=== PATIENT | male | born 1980 | race Two or more races ===

== ENCOUNTER 2018-04-15 16:03 | Emergency (ER) | payer SELFPAY ==
[~2018-04-15] VITALS: Ht 165.1 cm; Wt 86.2 kg
[~2018-04-15 16:03] MED LIST: CYCLOBENZAPRINE10 MG ORAL; IBUPROFEN600 MG ORAL; IBUPROFEN600 MG PO; INDOCIN25 MG ORAL; NORCO 5-325 TA1 EACH ORAL; VALIUM5 MG PO; VICODIN1 TAB PO
[2018-04-15] MEDS ORDERED: Benzonatate 100mg Perles ORAL ONE (16:30)
--- NOTE | 2018-04-15 16:33 | Emergency Room Report ---
History of Present Illness General Chief Complaint: Flu Like Symptoms Source: Patient Present Illness HPI 37 year-old male patient presents ER complaining of cough for the past 3 days. Reports cough with clear sputum, denies hemoptysis. Denies coffee-ground emesis contrary to triage report.. Reports sore throat during this time. Denies vomiting. Reports runny nose during this time. Reports feeling congested. reports night sweats, denies fever. Denies cough worse at night. Reports was at work and they sent him home until about come back until "the cough goes away". Requesting work no. Denies history of heart attack or stroke. Denies history of asthma. Denies history of heart disease. Denies fever, chest pain, shortness of breath, abdominal pain. Denies vomiting. Allergies: Coded Allergies: No Known Allergies (Unverified , 04/15/18) Patient History Past Medical History: see triage record Reviewed Nursing Documentation: PMH: Agreed; PSxH: Agreed Nursing Documentation-PMH Past Medical History: No Stated History Hx Cardiac Problems: No - Hyperthyroidism Hx Neurological Problems: No - left ankle surgery d/t fx in 2009 Review of Systems All Other Systems: negative except mentioned in HPI Physical Exam Vital Signs Date Time Temp Pulse Resp B/P (MAP) Pulse Ox O2 Delivery O2 Flow Rate FiO2 04/15/18 16:07 98.4 16 131/86 97 Room Air Sp02 EP Interpretation: reviewed, normal General Appearance: well appearing, no apparent distress, alert, GCS 15, non- toxic Head: normocephalic, atraumatic Eyes: bilateral eye normal inspection, bilateral eye PERRL ENT: hearing grossly normal, normal pharynx, no angioedema, normal voice, TMs + canals normal, uvula midline, moist mucus membranes, nasal congestion Neck: full range of motion Respiratory: lungs clear, normal breath sounds, no rhonchi, no respiratory distress, no accessory muscle use, no wheezing, speaking full sentences Cardiovascular #1: regular rate, rhythm, no edema Musculoskeletal: back normal, digits/nails normal, gait/station normal, normal range of motion, non-tender Neurologic: alert, oriented x3, responsive, motor strength/tone normal, sensory intact Psychiatric: mood/affect normal Skin: no rash Medical Decision Making PA Attestation Dr. López is my supervising Physician whom patient management has been discussed with. Diagnostic Impression: Primary Impression: Upper respiratory infection ER Course Pt presents to ED c/o cough x 3 days. DDX considered but are not limited to influenza, viral URI, pneumonia, strep throat, rhinitis, sinusitis, otitis media, otitis externa, TB. VITAL SIGNS are WNL, patient is afebrile. ER COURSE: Provided with cough medication in the ER. Lungs clear to auscultation, no wheezes, rhonci or rales. patient afebrile. CXR negative, low suspicion for pneumonia, does not require abx. no tonsillar exudates, no pharyngeal erythema, history of cough, no fever, no stridor, uvula midline, low suspicion for peritonsillar abscess. Likely viral etiology of symptoms. Symptomatic treatment. drink plenty of fluids. Salt water gargles for sore throat. Followup with PCP for further treatment and/or referral as needed. Er precautions given. DISCHARGE: -Rx given for Claritin -Rx given for Tylenol/Acetaminophen -Rx given for Tessalon Perles for cough sx. -Rx given for Sudafed At this time pt is stable for d/c to home. Patient is resting comfortably, in no acute distress, nontoxic appearing. Patient to take medications as instructed Will provide with patient care instructions and any necessary prescriptions. Care plan and follow-up instructions provided. Patient instructed to follow-up with primary care provider in 3 - 5 days. Patient questions asked and answered. Patient reports understanding and agreement to treatment plan. ER precautions given. Patient instructed to return to ER immediately for any new or worsening of symptoms including but not limited to increasing SOB, persistent fever, intractable vomiting. - Please note that this Emergency Department Report was dictated using [employer] mercerizer operator technology software, occasionally this can lead to erroneous entry secondary to interpretation by the dictation equipment. Chest X-Ray Diagnostic Results Chest X-Ray Diagnostic Results : Chest X-Ray Ordered: Yes # of Views/Limited/Complete: 1 View Indication: Chest Pain EP Interpretation: Yes NAKIA Xray: Interpretation reviewed, and agrees with findings. Interpretation: no consolidation, no effusion, no pneumothorax, no acute cardiopulmonary disease Impression: No acute disease NAKIA Krishna PA-C Last Vital Signs Date Time Temp Pulse Resp B/P (MAP) Pulse Ox O2 Delivery O2 Flow Rate FiO2 04/15/18 16:07 98.4 16 131/86 97 Room Air Disposition: HOME, SELF-CARE Condition: Stable Scripts Loratadine (CLARITIN) 10 Mg Capsule 10 MG ORAL DAILY, #30 CAP Prov: Rolf Krishna 04/15/18 D-Methorphan/PE/Acetaminophen (Sudafed PE Pressure+Pain+Cough) 1 Each Tablet 1 EACH PO BID, #24 TAB Prov: Rolf Krishna 04/15/18 Benzonatate* (TESSALON PERLE*) 100 Mg Capsule 100 MG ORAL THREE TIMES A DAY, #20 PERLE Prov: Rolf Krishna 04/15/18 Acetaminophen* (TYLENOL EXTRA STRENGTH*) 500 Mg Tablet 500 MG ORAL Q8H PRN for Prn Headache/Temp > 101, #30 TAB 0 Refills Prov: Rolf Krishna 04/15/18 Patient Instructions: Upper Respiratory Infection, Adult, [id number] Additional Instructions: Followup with primary care provider in 3 -5 days. Take medications as directed. Patient questions asked and answered. ER precautions given, patient instructed to return to ER immediately for any new or worsening of symptoms. Rolf Krishna Apr 15, 2018 16:33
[2018-04-15 16:47] VITALS: BP 131/86
[2018-04-15] MEDS ORDERED: CLARITIN10 M2 ORAL (16:59)
[2018-04-15] MEDS ORDERED: SUDAFED PE PRE1 EACH PO (16:59)
[2018-04-15] MEDS ORDERED: TESSALON PERLE100 MG ORAL (16:59)
[2018-04-15] MEDS ORDERED: TYLENOL EXTRA500 MG ORAL (16:59)
[2018-04-15 17:15] VITALS: BP 131/86
--- NOTE | 2018-04-15 17:25 | Diagnostic Imaging Report ---
Indication: Cough Technique: One view of the chest Comparison: none Findings: Lungs and pleural spaces are clear. Heart size is normal. There is some atelectasis at the left lung base Impression: No acute process
== END 2018-04-15 17:17 | disposition home or self-care (01) ==
LOC: EMR 16:43
DX: J06.9 Acute upper respiratory infection, unspecified (principal); R07.9 Chest pain, unspecified; E05.90 Thyrotoxicosis, unspecified without thyrotoxic crisis or storm
CPT/HCPCS: 71045; 99283